=== PATIENT | male | born 1965 | race Caucasian/White ===

== ENCOUNTER 2016-03-26 16:00 | Inpatient (IN) ==
[2016-03-26] MEDS ORDERED: *HR* OxyCODONE Immed Rel 5 MG TABLET PO PRN ×2 (17:53→17:54)
[2016-03-26] MEDS: *HR* OxyCODONE Immed Rel 5 MG TABLET PO PRN ×2 (18:30→22:43)
[2016-03-26] MEDS: Gabapentin 300 MG CAPSULE PO SCH (22:43)
[2016-03-26] MEDS: ZOVIRAX CREAM TP SCH (22:44)
[2016-03-27] MEDS: *HR* OxyCODONE Immed Rel 5 MG TABLET PO PRN ×6 (03:31→23:41)
[2016-03-27 05:17] LABS: Basophils % 0.2 %; Eosinophils # 0.3 K/mcL (0.0-0.6); Eosinophils % 6.4 %; Hematocrit 35.2 % (37.5-50.1); Hemoglobin 12.2 g/dL (12.9-16.9); Lymphocytes # 1.5 K/mcL (0.6-4.6); Lymphocytes % 37.5 %; Mean Corpuscular HGB Conc 34.7 g/dL (31.6-35.5); Mean Corpuscular Hemoglobin 31.3 pg (28.0-33.3); Mean Corpuscular Volume 90.3 fL (83.0-100.0); Mean Platelet Volume 9.7 fL (9.4-12.4); Monocytes # 0.3 K/mcL (0.0-1.3); Monocytes % 7.8 %; Neutrophils # 1.9 K/mcL (1.6-8.9); Platelet Count 228 K/mcL (140-400); Segmented Neutrophils % 47.1 %
[2016-03-27 05:22] LABS: INR 1.3; Prothrombin Time 13.9 Seconds (9.4-12.1)
[2016-03-27 05:25] LABS: Activated Partial Thrombo Time 33.4 Seconds (26.0-36.0)
[2016-03-27 05:33] LABS: BUN/Creatinine Ratio 6 (6-26); Blood Urea Nitrogen 6 mg/dL (8-26); Calcium 9.2 mg/dL (8.6-10.8); Carbon Dioxide 29 mEq/L (19-29); Chloride 102 mEq/L (98-109); Glucose 103 mg/dL (70-99); Osmolality,Calculated 292 (280-300); Potassium 3.2 mEq/L (3.5-4.5); Sodium 142 mEq/L (136-145); eGFR For African Americans > 60 (> 60); eGFR For Non-African Americans > 60 (> 60)
[2016-03-27] MEDS: ZOVIRAX CREAM TP SCH ×5 (05:47→20:25)
[2016-03-27] MEDS: Gabapentin 300 MG CAPSULE PO SCH ×3 (08:43→20:24)
[2016-03-27] MEDS: FLUoxetine 20 MG CAPSULE PO SCH (08:43)
[2016-03-27] MEDS ORDERED: Thiamine (B-1) 100 MG TABLET PO SCH (09:00)
[2016-03-27] MEDS ORDERED: Magnesium Oxide 400 MG TABLET PO SCH (09:00)
--- NOTE | 2016-03-27 16:38 | Internal Med History&Physical ---
Date of Encounter: 03/27/16 Time of Encounter: 15:35 Assessment and Plan (1) Pneumonia Current visit: No Status: Acute Continue oral Levaquin. I will add lactobacillus. Qualifiers: Pneumonia type: due to unspecified organism Laterality: bilateral Lung location: upper lobe of lung Qualified Code(s): J18.9 - Pneumonia, unspecified organism (2) Falls Current visit: No Status: Acute He will have PT and OT evaluations. Qualifiers: Encounter type: subsequent encounter Qualified Code(s): W19.XXXD - Unspecified fall, subsequent encounter (3) Hypokalemia Current visit: Yes Status: Acute We will give supplemental potassium and adjust dose of lisinopril/HCTZ. (4) Hypomagnesemia Current visit: Yes Status: Acute Probably secondary to HCTZ use. Will adjust dose and give supplemental magnesium. (5) Anemia Current visit: Yes Status: Acute We will order anemia testing in a.m. Qualifiers: Anemia type: unspecified type Qualified Code(s): D64.9 - Anemia, unspecified Internal Medicine - H&P: HPI Chief complaint: Pneumonia Admitted From: Hospital to Hospital Transfer Plans for Post Hospital Care: Home History of present illness: Mr. Armenta is a 50 year old male who was hospitalized at [facility] March 23 with pneumonia and SIRS. A chest CT showed multifocal infiltrate. He was placed on IV Levaquin and responded satisfactorily. He was discharged to [facility] swing bed for ongoing care needs. His respiratory history significant for being a lifelong nonsmoker. He denies known chronic lung disease. Past Med Surg Social Fam HX - Past Medical History Medical history: GERD, hepatitis, hypertension, kidney stones, liver disease Psychiatric history: anxiety, depression - Social History Smoking Status: Never smoker Smokeless Tobacco Status: No Alcohol use: none Drug use: none - Family History Father Hx Family Cardiac Disorders: Yes Hx Family Endocrine Disorder: Yes Mother Hx Family Cardiac Disorders: Yes Hx Family Endocrine Disorder: Yes Internal Medicine - H&P: Meds Diazepam [Valium] 5 mg PO BID 03/05/15 [History] Aripiprazole 5 mg PO DAILY 03/06/16 [History] FLUoxetine HCl [Prozac] 20 mg PO DAILY 03/06/16 [History] Gabapentin [Neurontin] 300 mg PO TID 03/06/16 [History] OxyCODONE Immed Rel [Roxicodone 5 MG] 10 mg PO Q6H PRN 03/06/16 [History] Lisinopril/Hydrochlorothiazide [Lisinopril-Hctz 20-25 mg Tab] 1 tab PO DAILY [History] Docusate [Colace] 100 mg PO BID #60 capsule 03/24/16 [Rx] Acyclovir [Zovirax] 2 gm TP 5XD #1 cream..g. 03/26/16 [Rx] Levofloxacin 750 mg PO Q24H #0 tablet 03/26/16 [Rx] Magnesium Oxide [Mag-Ox] 400 mg PO DAILY #0 tablet 03/26/16 [Rx] Omeprazole [PriLOSEC] 40 mg PO DAILY #0 03/26/16 [Rx] OxyCODONE Immed Rel [Roxicodone 5 MG] 5 - 10 mg PO Q4HR PRN #10 tablet 03/26/16 [Rx] Polyethylene Glycol 3350 [MiraLAX] 17 gm PO DAILY powd.pack 03/26/16 [Rx] Thiamine (B-1) [Vitamin B-1] 100 mg PO DAILY tablet 03/26/16 [Rx] Valacyclovir [Valtrex] 1,000 mg PO BID #0 tablet 03/26/16 [Rx] Allergies acetaminophen [From Tylenol] Adverse Reaction (Verified 03/23/16 08:23) See Comments liver disease/hepatitis All Systems PM: A 10-system review of systems was performed and is negative for pertinent findings except as documented above in the HPI. Review of systems: Gen.: He states his weight has increased from 135 pounds one year ago to present weight of approximately 190 pounds Cardiovascular: He has history of hypertension but denies [place] heart failure angina DVT or pulmonary embolus Respiratory: As per history of present illness GI: He has GERD. He was diagnosed with hepatitis C approximately 2013 but has not received treatment. He had abdominal pain during his [facility] stay and was told it was due to his "enlarged liver with hepatitis". He denies disorders of his gallbladder or exocrine pancreas : He has BPH. He had acute renal insufficiency that resolved during his [facility] stay. He has a history of kidney stones that are nonobstructing. Neurologic: He denies large distribution strokes or seizures. Endocrine: He is uncertain if he has diabetes. He denies thyroid disease or hyperlipidemia Hematology/oncology: He had anemia on blood work at [facility] without anemia testing ordered. Denies internal malignancies Psychiatric: He has anxiety and depression but denies other mental health issues Musk skeletal: He has neuropathy but denies significant DJD or gout. - Constitutional Vitals: Temp Pulse Resp BP Pulse Ox 97.6 F 91 16 127/85 93 L 03/27/16 14:36 03/27/16 14:36 03/27/16 14:36 03/27/16 14:36 03/27/16 14:36 Exam: Gen.: He is a well-developed well-nourished male who appears in no severe distress at present time. HEENT: Head is atraumatic and normocephalic. Eyes: EOMI. There is no scleral icterus. Mouth: Mucosa is moist. Neck: Supple and nontender. There is no thyromegaly or adenopathy noted. Heart: Regular without murmurs gallops or ectopics. Lungs: No wheezes or crackles are heard. Abdomen: Soft and nontender. No masses or guarding noted. Extremities: There is no cyanosis edema or clubbing noted. Dorsalis pedis and posttibial pulses are 1-2 over 2 bilaterally. Neurologic: Mental status: He is talkative and a good historian. Cranial nerves : Smile is symmetric. Forehead wrinkles bilaterally. Tongue protrudes midline. EOMI. Motor: There is no pronator drift. Cerebellar: Finger to nose is intact bilaterally. Skin: Warm and dry Internal Med - H&P Results - Labs CBC & Chem 7: 03/27/16 05:00 03/27/16 05:00 Labs: Short CBC 03/27/16 Range/Units 05:00 WBC 4.1 L (4.3-11.1) K/mcL Hgb 12.2 L (12.9-16.9) g/dL Hct 35.2 L (37.5-50.1) % Plt Count 228 (140-400) K/mcL Neutrophils # 1.9 (1.6-8.9) K/mcL BMP 03/27/16 05:00 Sodium 142 Potassium 3.2 L Chloride 102 Carbon Dioxide 29 BUN 6 L Creatinine 0.95 Glucose 103 H Calcium 9.2 - VTE Documentation of Mechanical Device: Graduated compression elastic hosiery
[2016-03-27] MEDS: Lactobacillus 1 EACH CAP.SPRINK PO SCH (20:25)
[2016-03-27] MEDS: Magnesium Oxide 400 MG TABLET PO SCH (20:25)
[2016-03-28] MEDS: ZOVIRAX CREAM TP SCH ×5 (02:41→20:18)
[2016-03-28] MEDS: *HR* OxyCODONE Immed Rel 5 MG TABLET PO PRN ×5 (03:28→20:22)
[2016-03-28 05:18] LABS: Basophils % 0.4 %; Eosinophils # 0.3 K/mcL (0.0-0.6); Immature Granulocytes % 2.5 % (0-4); Lymphocytes # 1.6 K/mcL (0.6-4.6); Lymphocytes % 30.5 %; Mean Corpuscular HGB Conc 34.2 g/dL (31.6-35.5); Mean Corpuscular Hemoglobin 31.4 pg (28.0-33.3); Mean Corpuscular Volume 91.8 fL (83.0-100.0); Mean Platelet Volume 10.2 fL (9.4-12.4); Monocytes # 0.3 K/mcL (0.0-1.3); Monocytes % 6.6 %; Neutrophils # 2.8 K/mcL (1.6-8.9); Platelet Count 273 K/mcL (140-400); Red Blood Count 4.14 M/mcL (4.19-5.50); Red Cell Distribution Width 13.2 % (11.5-14.5)
[2016-03-28 05:42] LABS: Uric Acid 5.8 mg/dL (3.5-7.2)
[2016-03-28 05:55] LABS: Thyroid Stimulating Hormone 2.04 mcIU/mL (0.350-4.840)
[2016-03-28] MEDS: Lisinopril 20 MG TABLET PO SCH (08:04)
[2016-03-28] MEDS: Lactobacillus 1 EACH CAP.SPRINK PO SCH ×2 (08:04→20:18)
[2016-03-28] MEDS: FLUoxetine 20 MG CAPSULE PO SCH (08:05)
[2016-03-28] MEDS: Gabapentin 300 MG CAPSULE PO SCH ×3 (08:05→20:18)
[2016-03-28] MEDS: Magnesium Oxide 400 MG TABLET PO SCH ×2 (08:05→20:18)
[2016-03-28 09:46] LABS: Folate 5.1 ng/mL (7.0-31.4)
--- NOTE | 2016-03-28 16:00 | Internal Med Progress Note ---
Date of Encounter: 03/28/16 Time of Encounter: 15:50 - Assessment and plan (1) Pneumonia Current Visit: No Status: Acute Assessment and plan: March 28. Continue Levaquin and lactobacillus Qualifiers: Pneumonia type: due to unspecified organism Laterality: bilateral Lung location: upper lobe of lung Qualified Code(s): J18.9 - Pneumonia, unspecified organism (2) Falls Current Visit: No Status: Acute Assessment and plan: March 28. Continue PT and OT Qualifiers: Encounter type: subsequent encounter Qualified Code(s): W19.XXXD - Unspecified fall, subsequent encounter (3) Hypokalemia Current Visit: Yes Status: Acute Assessment and plan: March 28. Continue supplemental potassium. Blood pressure is stable on adjusted dose of medications (4) Hypomagnesemia Current Visit: Yes Status: Acute Assessment and plan: March 28. Continue supplemental magnesium (5) Anemia Current Visit: Yes Status: Acute Assessment and plan: March 28. We will order folic acid Qualifiers: Anemia type: unspecified type Qualified Code(s): D64.9 - Anemia, unspecified - Subjective Interval history: March 28. He has no new complaints except mild stomach discomfort - Constitutional Vitals: Temp Pulse Resp BP Pulse Ox 98.2 F 89 16 115/76 94 L 03/28/16 13:40 03/28/16 13:40 03/28/16 13:40 03/28/16 13:40 03/28/16 13:40 Exam: He appears in no acute distress. His affect is cheerful. I reviewed his medications and lab results. Internal Medicine: Result - Labs CBC & Chem 7: 03/28/16 04:20 03/27/16 05:00 Labs: Short CBC 03/28/16 Range/Units 04:20 WBC 5.2 (4.3-11.1) K/mcL Hgb 13.0 (12.9-16.9) g/dL Hct 38.0 (37.5-50.1) % Plt Count 273 (140-400) K/mcL Neutrophils # 2.8 (1.6-8.9) K/mcL - ABG Interpretation ABG results: PT/INR, D-dimer PT 13.9 Seconds (9.4-12.1) H 03/27/16 05:00 - VTE Documentation of Mechanical Device: Graduated compression elastic hosiery Consult Discharge Plan - Plan Referrals: Ariana Croft, [facility] [Primary Care Provider] - 1 week
[2016-03-29] MEDS: *HR* OxyCODONE Immed Rel 5 MG TABLET PO PRN ×5 (04:32→21:32)
[2016-03-29] MEDS: Magnesium Oxide 400 MG TABLET PO SCH ×2 (09:17→21:34)
[2016-03-29] MEDS: Gabapentin 300 MG CAPSULE PO SCH ×3 (09:17→21:34)
[2016-03-29] MEDS: Lactobacillus 1 EACH CAP.SPRINK PO SCH ×2 (09:22→21:33)
[2016-03-29] MEDS: Folic Acid 1 MG TABLET PO SCH (09:22)
[2016-03-29] MEDS: FLUoxetine 20 MG CAPSULE PO SCH (09:23)
[2016-03-29] MEDS: Lisinopril 20 MG TABLET PO SCH (09:23)
[2016-03-29] MEDS: ZOVIRAX CREAM TP SCH ×5 (09:25→21:32)
--- NOTE | 2016-03-29 17:43 | Internal Med Progress Note ---
Date of Encounter: 03/29/16 Time of Encounter: 17:30 - Assessment and plan (1) Pneumonia Current Visit: No Status: Acute Assessment and plan: March 28. Continue Levaquin and lactobacillus Qualifiers: Pneumonia type: due to unspecified organism Laterality: bilateral Lung location: upper lobe of lung Qualified Code(s): J18.9 - Pneumonia, unspecified organism (2) Falls Current Visit: No Status: Acute Assessment and plan: March 28. Continue PT and OT Qualifiers: Encounter type: subsequent encounter Qualified Code(s): W19.XXXD - Unspecified fall, subsequent encounter (3) Hypokalemia Current Visit: Yes Status: Acute Assessment and plan: March 28. Continue supplemental potassium. Blood pressure is stable on adjusted dose of medications March 29. We will recheck labs in a.m. (4) Hypomagnesemia Current Visit: Yes Status: Acute Assessment and plan: March 28. Continue supplemental magnesium March 29. Will recheck labs in a.m. (5) Anemia Current Visit: Yes Status: Acute Assessment and plan: March 28. We will order folic acid Qualifiers: Anemia type: unspecified type Qualified Code(s): D64.9 - Anemia, unspecified - Subjective Interval history: March 28. He has no new complaints except mild stomach discomfort March 29. He has no new complaints and feels well. - Constitutional Vitals: Temp Pulse Resp BP Pulse Ox 98.2 F 91 16 122/82 97 03/29/16 07:07 03/29/16 11:45 03/29/16 11:45 03/29/16 11:45 03/29/16 11:45 Exam: He is resting comfortably in bed. His affect is bright and cheerful. I reviewed his medications and lab results. Internal Medicine: Result - Labs CBC & Chem 7: 03/28/16 04:20 03/27/16 05:00 - ABG Interpretation ABG results: PT/INR, D-dimer PT 13.9 Seconds (9.4-12.1) H 03/27/16 05:00 - VTE Documentation of Mechanical Device: Graduated compression elastic hosiery Consult Discharge Plan - Plan Referrals: Ariana Croft, EXPERIMENTAL AIRCRAFT MECHANIC [Primary Care Provider] - 1 week
[2016-03-30] MEDS: ZOVIRAX CREAM TP SCH ×5 (00:26→20:41)
[2016-03-30] MEDS: *HR* OxyCODONE Immed Rel 5 MG TABLET PO PRN ×6 (01:35→23:11)
[2016-03-30 07:18] LABS: BUN/Creatinine Ratio 8 (6-26); Blood Urea Nitrogen 10 mg/dL (8-26); Calcium 9.3 mg/dL (8.6-10.8); Carbon Dioxide 28 mEq/L (19-29); Chloride 101 mEq/L (98-109); Glucose 148 mg/dL (70-99); Magnesium 2.6 mg/dL (1.6-2.6); Osmolality,Calculated 290 (280-300); Potassium 4.2 mEq/L (3.5-4.5); Sodium 139 mEq/L (136-145); eGFR For African Americans > 60 (> 60); eGFR For Non-African Americans 57 (> 60)
[2016-03-30] MEDS: Magnesium Oxide 400 MG TABLET PO SCH ×2 (09:51→20:44)
[2016-03-30] MEDS: Lisinopril 20 MG TABLET PO SCH (09:55)
[2016-03-30] MEDS: Folic Acid 1 MG TABLET PO SCH (09:56)
[2016-03-30] MEDS: Lactobacillus 1 EACH CAP.SPRINK PO SCH ×2 (09:56→20:42)
[2016-03-30] MEDS: Gabapentin 300 MG CAPSULE PO SCH ×3 (09:56→20:43)
[2016-03-30] MEDS: FLUoxetine 20 MG CAPSULE PO SCH (09:57)
[2016-03-31] MEDS: ZOVIRAX CREAM TP SCH ×3 (00:34→11:07)
[2016-03-31] MEDS: *HR* OxyCODONE Immed Rel 5 MG TABLET PO PRN ×5 (04:24→22:50)
[2016-03-31] MEDS: FLUoxetine 20 MG CAPSULE PO SCH (08:47)
[2016-03-31] MEDS: Lactobacillus 1 EACH CAP.SPRINK PO SCH ×2 (08:47→21:14)
[2016-03-31] MEDS: Gabapentin 300 MG CAPSULE PO SCH ×3 (08:48→21:14)
[2016-03-31] MEDS: Folic Acid 1 MG TABLET PO SCH (08:49)
[2016-03-31] MEDS: Magnesium Oxide 400 MG TABLET PO SCH ×2 (08:49→21:14)
[2016-03-31] MEDS: Lisinopril 20 MG TABLET PO SCH (08:49)
--- NOTE | 2016-03-31 14:07 | Internal Med Progress Note ---
Date of Encounter: 03/31/16 Time of Encounter: 14:00 - Assessment and plan (1) Pneumonia Current Visit: No Status: Acute Assessment and plan: March 28. Continue Levaquin and lactobacillus March 30. Continue Levaquin and Lactobacillus until April 01. Qualifiers: Pneumonia type: due to unspecified organism Laterality: bilateral Lung location: upper lobe of lung Qualified Code(s): J18.9 - Pneumonia, unspecified organism (2) Falls Current Visit: No Status: Acute Assessment and plan: March 28. Continue PT and OT Qualifiers: Encounter type: subsequent encounter Qualified Code(s): W19.XXXD - Unspecified fall, subsequent encounter (3) Hypokalemia Current Visit: Yes Status: Acute Assessment and plan: March 28. Continue supplemental potassium. Blood pressure is stable on adjusted dose of medications March 29. We will recheck labs in a.m. March 31. Potassium is normal. Continue present regimen (4) Hypomagnesemia Current Visit: Yes Status: Acute Assessment and plan: March 28. Continue supplemental magnesium March 29. Will recheck labs in a.m. March 31. Magnesium level is normal. We will reduce magnesium dose (5) Anemia Current Visit: Yes Status: Acute Assessment and plan: March 28. We will order folic acid Qualifiers: Anemia type: unspecified type Qualified Code(s): D64.9 - Anemia, unspecified (6) Hypertension Current Visit: Yes Status: Chronic Assessment and plan: March 31. Will decrease HCTZ and lisinopril because of azotemia. Will also decrease KCl. Will start low-dose metoprolol. Qualifiers: Hypertension type: essential hypertension Qualified Code(s): I10 - Essential (primary) hypertension - Subjective Interval history: March 28. He has no new complaints except mild stomach discomfort March 29. He has no new complaints and feels well. March 31. He has no complaints - Constitutional Vitals: Temp Pulse Resp BP Pulse Ox 97.8 F 91 16 151/95 95 03/31/16 07:22 03/31/16 09:49 03/31/16 09:49 03/31/16 09:49 03/31/16 09:49 Exam: He is resting comfortably in bed. His lungs are clear. His affect is bright and cheerful. I reviewed his medications and lab results. Internal Medicine: Result - Labs CBC & Chem 7: 03/28/16 04:20 03/30/16 05:55 - ABG Interpretation ABG results: PT/INR, D-dimer PT 13.9 Seconds (9.4-12.1) H 03/27/16 05:00 - VTE Documentation of Mechanical Device: Graduated compression elastic hosiery Consult Discharge Plan - Plan Referrals: Ariana Croft, GEOTHER[employer] SHEET METAL WORKER [Primary Care Provider] - 1 week
[2016-03-31] MEDS: Metoprolol XL (24 HR) Succ 25 MG TAB.ER.24H PO SCH (14:55)
[2016-04-01] MEDS: *HR* OxyCODONE Immed Rel 5 MG TABLET PO PRN ×5 (02:50→21:41)
[2016-04-01] MEDS: Lisinopril 20 MG TABLET PO SCH (08:35)
[2016-04-01] MEDS: FLUoxetine 20 MG CAPSULE PO SCH (08:35)
[2016-04-01] MEDS: Folic Acid 1 MG TABLET PO SCH (08:35)
[2016-04-01] MEDS: Magnesium Oxide 400 MG TABLET PO SCH ×2 (08:35→21:39)
[2016-04-01] MEDS: Lactobacillus 1 EACH CAP.SPRINK PO SCH ×2 (08:35→21:39)
[2016-04-01] MEDS: Gabapentin 300 MG CAPSULE PO SCH ×3 (08:35→21:40)
[2016-04-01] MEDS: Metoprolol XL (24 HR) Succ 25 MG TAB.ER.24H PO SCH (08:36)
[2016-04-02] MEDS: *HR* OxyCODONE Immed Rel 5 MG TABLET PO PRN ×6 (03:10→20:42)
[2016-04-02 08:04] LABS: BUN/Creatinine Ratio 14 (6-26); Blood Urea Nitrogen 16 mg/dL (8-26); Calcium 9.3 mg/dL (8.6-10.8); Carbon Dioxide 28 mEq/L (19-29); Chloride 100 mEq/L (98-109); Glucose 137 mg/dL (70-99); Osmolality,Calculated 285 (280-300); Potassium 5.3 mEq/L (3.5-4.5); Sodium 136 mEq/L (136-145); eGFR For African Americans > 60 (> 60); eGFR For Non-African Americans > 60 (> 60)
[2016-04-02] MEDS: Lisinopril 20 MG TABLET PO SCH (10:15)
[2016-04-02] MEDS: FLUoxetine 20 MG CAPSULE PO SCH (10:16)
[2016-04-02] MEDS: Gabapentin 300 MG CAPSULE PO SCH ×3 (10:16→20:43)
[2016-04-02] MEDS: Lactobacillus 1 EACH CAP.SPRINK PO SCH (10:16)
[2016-04-02] MEDS: Metoprolol XL (24 HR) Succ 25 MG TAB.ER.24H PO SCH (10:16)
[2016-04-02] MEDS: Magnesium Oxide 400 MG TABLET PO SCH (10:16)
[2016-04-02] MEDS: Folic Acid 1 MG TABLET PO SCH (10:17)
--- NOTE | 2016-04-02 10:55 | Internal Med Progress Note ---
Date of Encounter: 04/02/16 Time of Encounter: 10:40 - Assessment and plan (1) Pneumonia Current Visit: No Status: Acute Assessment and plan: March 28. Continue Levaquin and lactobacillus March 30. Continue Levaquin and Lactobacillus until April 01. April 02. We will discontinue Levaquin and lactobacillus. Qualifiers: Pneumonia type: due to unspecified organism Laterality: bilateral Lung location: upper lobe of lung Qualified Code(s): J18.9 - Pneumonia, unspecified organism (2) Falls Current Visit: No Status: Acute Assessment and plan: March 28. Continue PT and OT Qualifiers: Encounter type: subsequent encounter Qualified Code(s): W19.XXXD - Unspecified fall, subsequent encounter (3) Hypokalemia Current Visit: Yes Status: Acute Assessment and plan: March 28. Continue supplemental potassium. Blood pressure is stable on adjusted dose of medications March 29. We will recheck labs in a.m. March 31. Potassium is normal. Continue present regimen April 02. Potassium is elevated at 5.3. Will discontinue potassium supplement (4) Hypomagnesemia Current Visit: Yes Status: Acute Assessment and plan: March 28. Continue supplemental magnesium March 29. Will recheck labs in a.m. March 31. Magnesium level is normal. We will reduce magnesium dose (5) Anemia Current Visit: Yes Status: Acute Assessment and plan: March 28. We will order folic acid Qualifiers: Anemia type: unspecified type Qualified Code(s): D64.9 - Anemia, unspecified (6) Hypertension Current Visit: Yes Status: Chronic Assessment and plan: March 31. Will decrease HCTZ and lisinopril because of azotemia. Will also decrease KCl. Will start low-dose metoprolol. April 02. Continue present dose HCTZ, lisinopril, and metoprolol Qualifiers: Hypertension type: essential hypertension Qualified Code(s): I10 - Essential (primary) hypertension (7) GERD (gastroesophageal reflux disease) Current Visit: No Status: Acute Assessment and plan: April 02. Will increase omeprazole and add prn Mylanta Qualifiers: Esophagitis presence: esophagitis presence not specified Qualified Code(s) : K21.9 - Gastro-esophageal reflux disease without esophagitis - Subjective Interval history: March 28. He has no new complaints except mild stomach discomfort March 29. He has no new complaints and feels well. March 31. He has no complaints April 02. He complains of GERD symptoms - Constitutional Vitals: Temp Pulse Resp BP Pulse Ox 97.9 F 71 16 106/70 98 04/02/16 07:35 04/02/16 07:35 04/02/16 07:35 04/02/16 07:35 04/02/16 07:35 Exam: He is ambulating in the [place] and appears in no acute distress. His heart is regular without murmurs gallops or ectopics. Lungs are clear. Extremities show no edema. I reviewed his medications and lab results Internal Medicine: Result - Labs CBC & Chem 7: 03/28/16 04:20 04/02/16 06:35 Labs: BMP 04/02/16 06:35 Sodium 136 Potassium 5.3 H Chloride 100 Carbon Dioxide 28 BUN 16 Creatinine 1.11 Glucose 137 H Calcium 9.3 - ABG Interpretation ABG results: PT/INR, D-dimer PT 13.9 Seconds (9.4-12.1) H 03/27/16 05:00 - VTE Documentation of Mechanical Device: Graduated compression elastic hosiery Consult Discharge Plan - Plan Referrals: Ariana Croft, [employer] INSPECTING DISPATCHER [Primary Care Provider] - 1 week
[2016-04-02] MEDS: Mag Hydrox/Al Hydrox/Simeth 30 ML UDC PO PRN (16:58)
[2016-04-03] MEDS: Mag Hydrox/Al Hydrox/Simeth 30 ML UDC PO PRN ×4 (00:30→18:18)
[2016-04-03] MEDS: *HR* OxyCODONE Immed Rel 5 MG TABLET PO PRN ×6 (00:31→22:28)
[2016-04-03] MEDS: Gabapentin 300 MG CAPSULE PO SCH ×3 (07:57→22:28)
[2016-04-03] MEDS: Metoprolol XL (24 HR) Succ 25 MG TAB.ER.24H PO SCH (07:57)
[2016-04-03] MEDS: Folic Acid 1 MG TABLET PO SCH (07:57)
[2016-04-03] MEDS: FLUoxetine 20 MG CAPSULE PO SCH (07:57)
[2016-04-03] MEDS: Lisinopril 20 MG TABLET PO SCH (07:58)
[2016-04-04] MEDS: Mag Hydrox/Al Hydrox/Simeth 30 ML UDC PO PRN ×2 (02:42→06:21)
[2016-04-04] MEDS: *HR* OxyCODONE Immed Rel 5 MG TABLET PO PRN ×4 (06:23→22:22)
[2016-04-04] MEDS: Lisinopril 20 MG TABLET PO SCH (09:29)
[2016-04-04] MEDS: Folic Acid 1 MG TABLET PO SCH (09:29)
[2016-04-04] MEDS: Gabapentin 300 MG CAPSULE PO SCH ×3 (09:30→22:22)
[2016-04-04] MEDS: FLUoxetine 20 MG CAPSULE PO SCH (09:30)
[2016-04-04] MEDS: Metoprolol XL (24 HR) Succ 25 MG TAB.ER.24H PO SCH (09:31)
[2016-04-05] MEDS: *HR* OxyCODONE Immed Rel 5 MG TABLET PO PRN ×3 (03:53→12:22)
[2016-04-05] MEDS: Mag Hydrox/Al Hydrox/Simeth 30 ML UDC PO PRN (06:37)
[2016-04-05 07:03] VITALS: BP 96/60
[2016-04-05] MEDS: Metoprolol XL (24 HR) Succ 25 MG TAB.ER.24H PO SCH (08:42)
[2016-04-05] MEDS: FLUoxetine 20 MG CAPSULE PO SCH (08:45)
[2016-04-05] MEDS: Gabapentin 300 MG CAPSULE PO SCH (08:46)
[2016-04-05] MEDS: Folic Acid 1 MG TABLET PO SCH (08:47)
--- NOTE | 2016-04-05 11:21 | Discharge Summary ---
Date of Encounter: 04/05/16 Time of Encounter: 10:45 - Discharge Diagnosis (1) Pneumonia Priority: Primary Status: Resolved Qualifiers: Pneumonia type: due to unspecified organism Laterality: bilateral Lung location: upper lobe of lung Qualified Code(s): J18.9 - Pneumonia, unspecified organism (2) Falls Priority: Secondary Status: Acute Qualifiers: Encounter type: subsequent encounter Qualified Code(s): W19.XXXD - Unspecified fall, subsequent encounter (3) Hypokalemia Priority: Secondary Status: Resolved (4) Hypomagnesemia Priority: Secondary Status: Resolved (5) Anemia Priority: Secondary Status: Acute Qualifiers: Anemia type: folate deficiency Folate deficiency anemia type: unspecified folate deficiency Qualified Code(s): D52.9 - Folate deficiency anemia, unspecified (6) Hypertension Priority: Secondary Status: Chronic Qualifiers: Hypertension type: essential hypertension Qualified Code(s): I10 - Essential (primary) hypertension (7) GERD (gastroesophageal reflux disease) Priority: Secondary Status: Chronic Qualifiers: Esophagitis presence: esophagitis presence not specified Qualified Code(s) : K21.9 - Gastro-esophageal reflux disease without esophagitis - Discharge Medications Prescriptions: Folic Acid 1 mg PO DAILY #30 tablet Hydrochlorothiazide 12.5 mg PO Q48H #30 tablet Lisinopril [Zestril] 10 mg PO DAILY #30 tablet Metoprolol XL (24 HR) Succ [Toprol Xl] 25 mg PO DAILY #30 tab.er.24h Home Medications: Diazepam [Valium] 5 mg PO BID 03/05/15 [History] Aripiprazole 5 mg PO DAILY 03/06/16 [History] FLUoxetine HCl [Prozac] 20 mg PO DAILY 03/06/16 [History] Gabapentin [Neurontin] 300 mg PO TID 03/06/16 [History] OxyCODONE Immed Rel [Roxicodone 5 MG] 10 mg PO Q6H PRN 03/06/16 [History] Docusate [Colace] 100 mg PO BID #60 capsule 03/24/16 [Rx] Acyclovir [Zovirax] 2 gm TP 5XD #1 cream..g. 03/26/16 [Rx] Omeprazole [PriLOSEC] 40 mg PO DAILY #0 03/26/16 [Rx] OxyCODONE Immed Rel [Roxicodone 5 MG] 5 - 10 mg PO Q4HR PRN #10 tablet 03/26/16 [Rx] Folic Acid 1 mg PO DAILY #30 tablet 04/05/16 [Rx] Hydrochlorothiazide 12.5 mg PO Q48H #30 tablet 04/05/16 [Rx] Lisinopril [Zestril] 10 mg PO DAILY #30 tablet 04/05/16 [Rx] Metoprolol XL (24 HR) Succ [Toprol Xl] 25 mg PO DAILY #30 tab.er.24h 04/05/16 [ Rx] Allergies/Adverse Reactions: Allergies acetaminophen [From Tylenol] Adverse Reaction (Verified 03/23/16 08:23) See Comments liver disease/hepatitis Date of admission: 03/26/16 16:00 Primary care physician: Ariana Crotf CNP Consults: 03/26/16 19:58 Consult to Occupational Therapy [CONS] Routine Comment: eval, develop, and implement plan of care Consult to Physical Therapy [CONS] Routine Comment: eval, develop, and implement plan of care Consult to Business Intelligence Architect [CONS] Routine Reason for SW Consult: D/C planning - Patient Status Disposition: Home, Self-Care Overall status at discharge: patient is progressing back to baseline - Discharge Instructions Follow Up With: Ariana Croft CNP [Primary Care Provider] - 1 week - Diet and Activity Activity: ambulate only with your walker, resume usual activities as tolerated Diet: advance to your usual diet Hospital course: Mr. Armenta is a 50 year old male who was hospitalized at [facility] March 23 with pneumonia and SIRS. A chest CT showed multifocal infiltrate. He was placed on IV Levaquin and responded satisfactorily. He was discharged to [facility] swing bed for ongoing care needs. Initial orders were written by the discharging physicians at [facility]. I saw him on March 27 and performed the swing bed history and physical. He continued on oral Levaquin and lactobacillus until April 02. He remained stable following discontinuation of these. He had physical therapy and occupational therapy evaluations with ongoing interventions. He made satisfactory progress. He will be discharged home with a Rollator walker for DME. He was taken off the lisinopril/HCTZ combination and placed on lower doses of individual components. Potassium was given and the hypokalemia resolved. He will be discharged on HCTZ 12.5 mg every 48 hours and lisinopril 10 mg daily. Toprol-XL was started and his blood pressure was well-controlled at the time of discharge. Magnesium level returned low and he was given supplemental magnesium oxide which resolved the hypomagnesemia. Anemia testing showed iron 64, transferrin saturation 18%, transferrin 258, ferritin 124 12 750, and folate 5.1. He will be discharged on supplemental folate. On April 05 arrangements were complete for him to be discharged home. He will follow his primary care provider Ariana Croft CNP within 1 week. - Time Spent with Patient Total time spent providing and/or coordinating discharge services: - Constitutional Vitals: Temp Pulse Resp BP Pulse Ox 98.2 F 75 15 96/60 93 L 04/05/16 07:02 04/05/16 07:02 04/05/16 07:02 04/05/16 07:02 04/05/16 07:02 - VTE Documentation of Mechanical Device: Graduated compression elastic hosiery
--- NOTE | 2016-04-05 11:33 | Physician Discharge Referral ---
Home Health/Hosp Referral Info Transfer to: Home Health Attending Provider: Baldev Provider in Charge Post Discharge: PCP (Ariana Croft CNP) - Diagnosis (1) Pneumonia Priority: Primary Status: Resolved (2) Falls Priority: Secondary Status: Acute (3) Hypokalemia Priority: Secondary Status: Resolved (4) Hypomagnesemia Priority: Secondary Status: Resolved (5) Anemia Priority: Secondary Status: Acute (6) Hypertension Priority: Secondary Status: Chronic (7) GERD (gastroesophageal reflux disease) Priority: Secondary Status: Chronic - Respiratory Orders Smoking Cessation: Smoking cessation has been advised. For more information, call the [place] Tobacco Quit Line at 2-294-UGHD-NOW. - Diet/Nutrition Diet/Nutrition Orders: Regular - Activity Activity Orders: Walker - Services Needed Following services are medically necessary services: Nursing, Home Health Aide, Physical Therapy, Occupational Therapy - Transfer Medications Prescriptions: Folic Acid 1 mg PO DAILY #30 tablet Hydrochlorothiazide 12.5 mg PO Q48H #30 tablet Lisinopril [Zestril] 10 mg PO DAILY #30 tablet Metoprolol XL (24 HR) Succ [Toprol Xl] 25 mg PO DAILY #30 tab.er.24h Home Medications: Diazepam [Valium] 5 mg PO BID 03/05/15 [History] Aripiprazole 5 mg PO DAILY 03/06/16 [History] FLUoxetine HCl [Prozac] 20 mg PO DAILY 03/06/16 [History] Gabapentin [Neurontin] 300 mg PO TID 03/06/16 [History] OxyCODONE Immed Rel [Roxicodone 5 MG] 10 mg PO Q6H PRN 03/06/16 [History] Docusate [Colace] 100 mg PO BID #60 capsule 03/24/16 [Rx] Acyclovir [Zovirax] 2 gm TP 5XD #1 cream..g. 03/26/16 [Rx] Omeprazole [PriLOSEC] 40 mg PO DAILY #0 03/26/16 [Rx] OxyCODONE Immed Rel [Roxicodone 5 MG] 5 - 10 mg PO Q4HR PRN #10 tablet 03/26/16 [Rx] Folic Acid 1 mg PO DAILY #30 tablet 04/05/16 [Rx] Hydrochlorothiazide 12.5 mg PO Q48H #30 tablet 04/05/16 [Rx] Lisinopril [Zestril] 10 mg PO DAILY #30 tablet 04/05/16 [Rx] Metoprolol XL (24 HR) Succ [Toprol Xl] 25 mg PO DAILY #30 tab.er.24h 04/05/16 [ Rx] Allergies/Adverse Reactions: Allergies acetaminophen [From Tylenol] Adverse Reaction (Verified 03/23/16 08:23) See Comments liver disease/hepatitis Certification: Further, I certify that my clinical findings support that this patient is homebound (i.e. absences from home require considerable and taxing effort and are for medical reasons or mosque services or infrequently or short duration when for other reasons) because: Homebound Reason: Leaving home requires considerable and taxing effort due to condition (Walking instability requiring Rollator walker) Attestation: My signature below is to certify that this patient is under my care and that I, or nurse practitioner, or a physician's temporary office assistant working with me, has a face-to -face encounter with this patient.
[2016-04-05] MEDS: Lisinopril 20 MG TABLET PO SCH (11:43)
== END 2016-04-05 12:40 | disposition home health service (06) | DRG 945 ==
LOC: INPPIK 16:00
PROVIDERS: ADMIT Internal Medicine; ATTEND Internal Medicine